=== PATIENT | female | born 1960 | race Caucasian/White ===

== ENCOUNTER 2023-02-27 15:56 | Inpatient (IN) | payer OTHER ==
[2023-02-27] MEDS ORDERED: DILTIAZEM DRIP BOLUS FROM BAG 1 MG SOLN IV ONE (16:34)
[2023-02-27] MEDS ORDERED: SODIUM CHLORIDE 0.9% 1,000 ML IV STA (16:34)
[2023-02-27] MEDS ORDERED: SODIUM CHLORIDE 0.9% 500 ML 500 ML IV STA (16:34)
[2023-02-27] MEDS ORDERED: DILTIAZEM 125 MG in SODIUM CHLORIDE 0.9% 100 ML IV SCH (16:45)
[2023-02-27 16:56] LABS: Basophils % (A) 0 %; Eosinophils # (A) 0.1 k/uL (0-0.7); Eosinophils % (A) 1 %; HCT 46.5 % (34.0-46.0); HGB 15.2 gm/dL (11.4-16.0); Lymphocytes # (A) 2.1 k/uL (1.0-4.8); Lymphocytes % (A) 24 %; MCH 31.9 pg (25.0-35.0); MCHC 32.7 g/dL (31.0-37.0); MCV 97.5 fL (80.0-100.0); Monocytes # (A) 0.5 k/uL (0-1.0); Monocytes % (A) 6 %; Neutrophils # (A) 5.7 k/uL (1.3-7.7); Neutrophils % (A) 67 %; Platelet Count 159 k/uL (150-450); RBC 4.77 m/uL (3.80-5.40); RDW 12.9 % (11.5-15.5); WBC 8.5 k/uL (3.8-10.6)
--- NOTE | 2023-02-27 17:02 | ED ---
SOB HPI - General Chief Complaint: Shortness of Breath Stated Complaint: SOB Time Seen by Provider: 02/27/23 16:34 Source: patient, RN notes reviewed, old records reviewed Mode of arrival: ambulatory Limitations: no limitations - History of Present Illness Initial Comments: This is a 62-year-old female Joan. She presents today for evaluation regar ds to elevated heart rate palpitations unable to catch her breath severely short of breath. Patient does admit that she feels like she may have pneumonia has history of pneumonia in the past and this feels similar. Patient is felt unwell for a few days now stemming from a long walk she took while at the fair. Patient is unable to catch her breath and is not currently better denies any fevers nausea vomiting or diarrhea. No other complaints no medical history the patient has not seen a doctor in years. Patient did quit smoking 20 years ago MD Complaint: shortness of breath, anxiety -: week(s) Severity: moderate Consistency: constant Improves With: nothing Worsens With: nothing Context: recent URI, anxiety, recent illness Associated Symptoms: denies other symptoms Treatments Prior to Arrival: none - Related Data Home Medications Medication Instructions Recorded Confirmed Esomeprazole Magnesium [NexIUM 20 mg PO DAILY 02/27/23 02/27/23 24Hr] L.acidoph,Paracasei, B.lactis 1 cap PO DAILY 02/27/23 02/27/23 [Probiotic] Magnesium Oxide [Magnesium] 1,000 mg PO DAILY 02/27/23 02/27/23 Previous Rx's Medication Instructions Recorded Apixaban [Eliquis] 5 mg PO BID #60 tab 03/02/23 Atorvastatin [Lipitor] 20 mg PO HS #30 tab 03/02/23 Furosemide [Lasix] 20 mg PO DAILY #30 tab 03/02/23 Metoprolol Tartrate [Lopressor] 50 mg PO BID #60 tab 03/02/23 lisinopriL [Zestril] 5 mg PO DAILY #30 tab 03/02/23 Allergies Allergy/AdvReac Type Severity Reaction Status Date / Time No Known Allergies Allergy Verified 02/27/23 17:31 Review of Systems ROS Statement: Those systems with pertinent positive or pertinent negative responses have been documented in the HPI. ROS Other: All systems not noted in ROS Statement are negative. Past Medical History Past Medical History: Pneumonia Additional Past Medical History / Comment(s): COVID History of Any Multi-Drug Resistant Organisms: None Reported Past Surgical History: Section Past Psychological History: No Psychological Hx Reported Smoking Status: Former smoker Past Alcohol Use History: Occasional Past Drug Use History: None Reported General Exam Limitations: no limitations General appearance: alert, anxious, in distress Head exam: Present: atraumatic, normocephalic, normal inspection Eye exam: Present: normal appearance, PERRL, EOMI. Absent: scleral icterus, conjunctival injection, periorbital swelling ENT exam: Present: normal exam, mucous membranes moist Neck exam: Present: normal inspection. Absent: tenderness, meningismus, lymphadenopathy Respiratory exam: Present: normal lung sounds bilaterally. Absent: respiratory distress, wheezes, rales, rhonchi, stridor Cardiovascular Exam: Present: tachycardia, irregular rhythm, normal heart sounds. Absent: systolic murmur, diastolic murmur, rubs, gallop, clicks GI/Abdominal exam: Present: soft, normal bowel sounds. Absent: distended, tenderness, guarding, rebound, rigid Extremities exam: Present: normal inspection, full ROM, normal capillary refill. Absent: tenderness, pedal edema, joint swelling, calf tenderness Back exam: Present: normal inspection Neurological exam: Present: alert, oriented X3, CN II-XII intact Psychiatric exam: Present: normal affect, normal mood Skin exam: Present: warm, dry, intact, normal color. Absent: rash Course Vital Signs 02/27/23 02/27/23 02/27/23 16:12 16:34 17:15 Temperature 98.2 F Pulse Rate 67 147 H 122 H Pulse Rate [ Pulse Oximetery ] Respiratory 24 20 20 Rate Blood Pressure 153/74 144/109 130/100 Blood Pressure [Right Arm] O2 Sat by Pulse 95 95 94 L Oximetry 02/27/23 02/27/23 02/27/23 17:45 18:46 19:46 Temperature Pulse Rate 112 H 113 H 114 H Pulse Rate [ Pulse Oximetery ] Respiratory 20 20 19 Rate Blood Pressure 134/99 134/100 136/90 Blood Pressure [Right Arm] O2 Sat by Pulse 96 96 95 Oximetry 02/27/23 02/27/23 02/28/23 21:30 23:14 01:20 Temperature Pulse Rate 109 H 97 92 Pulse Rate [ Pulse Oximetery ] Respiratory 19 17 17 Rate Blood Pressure 116/80 106/72 Blood Pressure [Right Arm] O2 Sat by Pulse 106 H 93 L Oximetry 02/28/23 02/28/23 02/28/23 02:44 05:21 06:59 Temperature Pulse Rate 97 99 101 H Pulse Rate [ Pulse Oximetery ] Respiratory 18 17 19 Rate Blood Pressure 114/76 125/78 125/76 Blood Pressure [Right Arm] O2 Sat by Pulse 90 L 92 L 92 L Oximetry 02/28/23 02/28/23 02/28/23 07:38 10:24 12:24 Temperature Pulse Rate 102 H 106 H Pulse Rate [ Pulse Oximetery ] Respiratory 18 18 Rate Blood Pressure 114/71 115/62 Blood Pressure [Right Arm] O2 Sat by Pulse 96 95 95 Oximetry 02/28/23 02/28/23 02/28/23 14:10 19:21 22:47 Temperature 97.4 F L 97.5 F L Pulse Rate 82 Pulse Rate [ 101 H 107 H Pulse Oximetery ] Respiratory 18 18 18 Rate Blood Pressure 137/82 Blood Pressure 133/97 137/82 [Right Arm] O2 Sat by Pulse 95 96 98 Oximetry - Reevaluation(s) Reevaluation #1: 02/27/23 18:30 Medical record is reviewed Reevaluation #2: 02/27/23 18:32 Patient symptoms are relatively unchanged heart rate still high, patient has no chest pain but is continued short of breath Reevaluation #3: 02/27/23 18:33 Patient informed results questions answered Reevaluation #4: 02/27/23 18:33 Was pt. sent in by a medical professional or institution (, PA, SOIL FIELD TECHNICIAN, urgent care, hospital, or usp...) When possible be specific @ -no Did you speak to anyone other than the patient for history (EMS, parent, family, police, friend...)? What history was obtained from this source @ -no Did you review nursing and triage notes (agree or disagree)? Why? @ -agree Are old charts reviewed (outside hosp., previous admission, EMS record, old EKG, old radiological studies, urgent care reports/EKG's, usp records)? Report findings @ -yes Differential Diagnosis (chest pain, altered mental status, abdominal pain women, abdominal pain men, vaginal bleeding, weakness, fever, dyspnea, syncope, headache, dizziness, GI bleed, back pain, seizure, CVA, palpatations, mental health, musculoskeletal)? @ -prior EKG interpreted by me (3pts min.). @ -yes X-rays interpreted by me (1pt min.). @ -yes CT interpreted by me (1pt min.). @ -no U/S interpreted by me (1pt. min.). @ -no What testing was considered but not performed or refused? (CT, X-rays, U/S, labs)? Why? @ -none What meds were considered but not given or refused? Why? @ -none Did you discuss the management of the patient with other professionals (professionals i.e. DrMelissa, PA, SOIL FIELD TECHNICIAN, lab, RT, psych nurse, social psychologist, statement clerks supervisor, teacher, technology officer, case supervisor)? Give summary @ -no Was smoking cessation discussed for >3mins.? @ -no Was critical care preformed (if so, how long)? @ -yes31 Were there social determinants of health that impacted care today? How? (Juanis elessness, low income, unemployed, alcoholism, drug addiction, transportation, low edu. Level, literacy, decrease access to med. care, skilled nursing, rehab)? @ -none Was there de-escalation of care discussed even if they declined (Discuss DNR or withdrawal of care, Hospice)? DNR status @ -no What co-morbidities impacted this encounter? (DM, HTN, Smoking, COPD, CAD, Cancer, CVA, ARF, Chemo, Hep., AIDS, mental health diagnosis, sleep apnea, morbid obesity)? @ -none Was patient admitted / discharged? Hospital course, mention meds given and route, prescriptions, significant lab abnormalities, going to OR and other pertinent info. @ - 62 female to the emergency department for evaluation. Elevated heart rate shortness of breath, patient is found to be and atrial fibrillation with RVR patient is anticoagulated with rate control and will be admitted for further evaluation management Admitted Undiagnosed new problem with uncertain prognosis? @ -no Drug Therapy requiring intensive monitoring for toxicity (Heparin, Nitro, Insulin, Cardizem)? @ -no Were any procedures done? @ -no Diagnosis/symptom? @ -Atrial fibrillation with RVR, weakness chest pain Acute, or Chronic, or Acute on Chronic? @ -Acute Uncomplicated (without systemic symptoms) or Complicated (systemic symptoms)? @ -Complicated Side effects of treatment? @ -no Exacerbation, Progression, or Severe Exacerbation? @ -exacerbation Poses a threat to life or bodily function? How? (Chest pain, [place], [place], pneumonia, PE, COPD, DKA, ARF, appy, cholecystitis, CVA, Diverticulitis, Homicidal, Suicidal, threat to staff... and all critical care pts) @ -yes with significant dysrhythmia Reevaluation #5: 02/27/23 18:33 Differential Chest Pain: Stable Angina, Unstable Angina, STEMI, NSTEMI Aortic Dissection, Pneumothorax, Musculoskeletal, Esophageal Spasm GERD, Cholecystitis, Pancreatitis, Zoster, this is not meant to be an all-inclusive list. Differential Dyspnea: Coronary syndrome, arrhythmia, tamponade, asthma, COPD, pulmonary embolism, pneumonia, pneumothorax, pulmonary effusion, anaphylaxis, diabetic ketoacidosis, flailed chest, pulmonary contusion, diaphragmatic rupture, anemia, neuromuscular, this is not meant to be an all-inclusive list. - Consultations Consultation #1: Spoke with sound physicians who agree to admit this patient Medical Decision Making - Medical Decision Making 62 female to the emergency department for evaluation. Elevated heart rate shortness of breath, patient is found to be and atrial fibrillation with RVR patient is anticoagulated with rate control and will be admitted for further evaluation management - Lab Data Result diagrams: 03/02/23 05:52 03/02/23 05:52 Lab Results 02/27/23 02/27/23 02/27/23 Range/Units 16:40 16:40 16:40 WBC 8.5 (3.8-10.6) k/uL RBC 4.77 (3.80-5.40) m/uL Hgb 15.2 (11.4-16.0) gm/dL Hct 46.5 H (34.0-46.0) % MCV 97.5 (80.0-100.0) fL MCH 31.9 (25.0-35.0) pg MCHC 32.7 (31.0-37.0) g/dL RDW 12.9 (11.5-15.5) % Plt Count 159 (150-450) k/uL MPV 10.0 Neutrophils % 67 % Lymphocytes % 24 % Monocytes % 6 % Eosinophils % 1 % Basophils % 0 % Neutrophils # 5.7 (1.3-7.7) k/uL Lymphocytes # 2.1 (1.0-4.8) k/uL Monocytes # 0.5 (0-1.0) k/uL Eosinophils # 0.1 (0-0.7) k/uL Basophils # 0.0 (0-0.2) k/uL PT 10.8 (9.0-12.0) sec INR 1.0 (<1.2) APTT 24.1 (22.0-30.0) sec Sodium 140 (137-145) mmol/L Potassium 4.5 (3.5-5.1) mmol/L Chloride 106 (98-107) mmol/L Carbon Dioxide 25 (22-30) mmol/L Anion Gap 9 mmol/L BUN 15 (7-17) mg/dL Creatinine 0.79 (0.52-1.04) mg/dL Est GFR (CKD-EPI)AfAm >90 (>60 ml/min/1.73 sqM) Est GFR (CKD-EPI)NonAf 81 (>60 ml/min/1.73 sqM) Glucose 96 (74-99) mg/dL Estimated Ave Glu mg/dL mg/dL Hemoglobin A1c (<=6.0) % Calcium 8.9 (8.4-10.2) mg/dL Phosphorus (2.5-4.5) mg/dL Magnesium 2.1 (1.6-2.3) mg/dL Total Bilirubin 0.9 (0.2-1.3) mg/dL AST 52 H (14-36) U/L ALT 92 H (4-34) U/L Alkaline Phosphatase 91 (38-126) U/L Troponin I (0.000-0.034) ng/mL Total Protein 6.1 L (6.3-8.2) g/dL Albumin 3.9 (3.5-5.0) g/dL Triglycerides (0.00-149.00) mg/dL Cholesterol (0.00-200.00) mg/dL LDL Cholesterol, Calc (0.0-131.0) mg/dL VLDL Cholesterol, Calc (5.00-40.00) mg/dL HDL Cholesterol (40.00-60.00) mg/dL Cholesterol/HDL Ratio Ratio TSH 3.850 (0.465-4.680) mIU/L 08/21/23 08/22/23 08/22/23 Range/Units 16:40 00:27 08:05 WBC 6.6 (3.8-10.6) k/uL RBC 4.57 (3.80-5.40) m/uL Hgb 14.5 (11.4-16.0) gm/dL Hct 45.5 (34.0-46.0) % MCV 99.6 (80.0-100.0) fL MCH 31.7 (25.0-35.0) pg MCHC 31.8 (31.0-37.0) g/dL RDW 13.0 (11.5-15.5) % Plt Count 158 (150-450) k/uL MPV 9.5 Neutrophils % 68 % Lymphocytes % 23 % Monocytes % 6 % Eosinophils % 1 % Basophils % 0 % Neutrophils # 4.5 (1.3-7.7) k/uL Lymphocytes # 1.5 (1.0-4.8) k/uL Monocytes # 0.4 (0-1.0) k/uL Eosinophils # 0.1 (0-0.7) k/uL Basophils # 0.0 (0-0.2) k/uL PT (9.0-12.0) sec INR (<1.2) APTT 38.2 H (22.0-30.0) sec Sodium (137-145) mmol/L Potassium (3.5-5.1) mmol/L Chloride (98-107) mmol/L Carbon Dioxide (22-30) mmol/L Anion Gap mmol/L BUN (7-17) mg/dL Creatinine (0.52-1.04) mg/dL Est GFR (CKD-EPI)AfAm (>60 ml/min/1.73 sqM) Est GFR (CKD-EPI)NonAf (>60 ml/min/1.73 sqM) Glucose (74-99) mg/dL Estimated Ave Glu mg/dL mg/dL Hemoglobin A1c (<=6.0) % Calcium (8.4-10.2) mg/dL Phosphorus (2.5-4.5) mg/dL Magnesium (1.6-2.3) mg/dL Total Bilirubin (0.2-1.3) mg/dL AST (14-36) U/L ALT (4-34) U/L Alkaline Phosphatase (38-126) U/L Troponin I 0.229 H* (0.000-0.034) ng/mL Total Protein (6.3-8.2) g/dL Albumin (3.5-5.0) g/dL Triglycerides (0.00-149.00) mg/dL Cholesterol (0.00-200.00) mg/dL LDL Cholesterol, Calc (0.0-131.0) mg/dL VLDL Cholesterol, Calc (5.00-40.00) mg/dL HDL Cholesterol (40.00-60.00) mg/dL Cholesterol/HDL Ratio Ratio TSH (0.465-4.680) mIU/L 02/28/23 02/28/23 02/28/23 Range/Units 08:05 08:05 08:05 WBC (3.8-10.6) k/uL RBC (3.80-5.40) m/uL Hgb (11.4-16.0) gm/dL Hct (34.0-46.0) % MCV (80.0-100.0) fL MCH (25.0-35.0) pg MCHC (31.0-37.0) g/dL RDW (11.5-15.5) % Plt Count (150-450) k/uL MPV Neutrophils % % Lymphocytes % % Monocytes % % Eosinophils % % Basophils % % Neutrophils # (1.3-7.7) k/uL Lymphocytes # (1.0-4.8) k/uL Monocytes # (0-1.0) k/uL Eosinophils # (0-0.7) k/uL Basophils # (0-0.2) k/uL PT (9.0-12.0) sec INR (<1.2) APTT 49.4 H (22.0-30.0) sec Sodium 143 (137-145) mmol/L Potassium 4.3 (3.5-5.1) mmol/L Chloride 109 H (98-107) mmol/L Carbon Dioxide 27 (22-30) mmol/L Anion Gap 7 mmol/L BUN 15 (7-17) mg/dL Creatinine 0.69 (0.52-1.04) mg/dL Est GFR (CKD-EPI)AfAm >90 (>60 ml/min/1.73 sqM) Est GFR (CKD-EPI)NonAf >90 (>60 ml/min/1.73 sqM) Glucose 95 (74-99) mg/dL Estimated Ave Glu mg/dL 117 mg/dL Hemoglobin A1c 5.7 (<=6.0) % Calcium 8.4 (8.4-10.2) mg/dL Phosphorus 3.8 (2.5-4.5) mg/dL Magnesium 2.0 (1.6-2.3) mg/dL Total Bilirubin 1.2 (0.2-1.3) mg/dL AST 46 H (14-36) U/L ALT 81 H (4-34) U/L Alkaline Phosphatase 89 (38-126) U/L Troponin I (0.000-0.034) ng/mL Total Protein 5.6 L (6.3-8.2) g/dL Albumin 3.4 L (3.5-5.0) g/dL Triglycerides (0.00-149.00) mg/dL Cholesterol (0.00-200.00) mg/dL LDL Cholesterol, Calc (0.0-131.0) mg/dL VLDL Cholesterol, Calc (5.00-40.00) mg/dL HDL Cholesterol (40.00-60.00) mg/dL Cholesterol/HDL Ratio Ratio TSH (0.465-4.680) mIU/L 02/28/23 02/28/23 02/28/23 Range/Units 08:05 10:17 12:12 WBC 8.3 (3.8-10.6) k/uL RBC 4.45 (3.80-5.40) m/uL Hgb 14.4 (11.4-16.0) gm/dL Hct 43.7 (34.0-46.0) % MCV 98.4 (80.0-100.0) fL MCH 32.4 (25.0-35.0) pg MCHC 32.9 (31.0-37.0) g/dL RDW 13.0 (11.5-15.5) % Plt Count 158 (150-450) k/uL MPV 9.5 Neutrophils % 71 % Lymphocytes % 20 % Monocytes % 6 % Eosinophils % 1 % Basophils % 1 % Neutrophils # 5.9 (1.3-7.7) k/uL Lymphocytes # 1.6 (1.0-4.8) k/uL Monocytes # 0.5 (0-1.0) k/uL Eosinophils # 0.1 (0-0.7) k/uL Basophils # 0.1 (0-0.2) k/uL PT (9.0-12.0) sec INR (<1.2) APTT (22.0-30.0) sec Sodium (137-145) mmol/L Potassium (3.5-5.1) mmol/L Chloride (98-107) mmol/L Carbon Dioxide (22-30) mmol/L Anion Gap mmol/L BUN (7-17) mg/dL Creatinine (0.52-1.04) mg/dL Est GFR (CKD-EPI)AfAm (>60 ml/min/1.73 sqM) Est GFR (CKD-EPI)NonAf (>60 ml/min/1.73 sqM) Glucose (74-99) mg/dL Estimated Ave Glu mg/dL mg/dL Hemoglobin A1c (<=6.0) % Calcium (8.4-10.2) mg/dL Phosphorus (2.5-4.5) mg/dL Magnesium (1.6-2.3) mg/dL Total Bilirubin (0.2-1.3) mg/dL AST (14-36) U/L ALT (4-34) U/L Alkaline Phosphatase (38-126) U/L Troponin I 0.104 H* (0.000-0.034) ng/mL Total Protein (6.3-8.2) g/dL Albumin (3.5-5.0) g/dL Triglycerides 59.50 (0.00-149.00) mg/dL Cholesterol 153.00 (0.00-200.00) mg/dL LDL Cholesterol, Calc 93.3 (0.0-131.0) mg/dL VLDL Cholesterol, Calc 11.90 (5.00-40.00) mg/dL HDL Cholesterol 47.80 (40.00-60.00) mg/dL Cholesterol/HDL Ratio 3.20 Ratio TSH (0.465-4.680) mIU/L 02/28/23 Range/Units 12:12 WBC (3.8-10.6) k/uL RBC (3.80-5.40) m/uL Hgb (11.4-16.0) gm/dL Hct (34.0-46.0) % MCV (80.0-100.0) fL MCH (25.0-35.0) pg MCHC (31.0-37.0) g/dL RDW (11.5-15.5) % Plt Count (150-450) k/uL MPV Neutrophils % % Lymphocytes % % Monocytes % % Eosinophils % % Basophils % % Neutrophils # (1.3-7.7) k/uL Lymphocytes # (1.0-4.8) k/uL Monocytes # (0-1.0) k/uL Eosinophils # (0-0.7) k/uL Basophils # (0-0.2) k/uL PT (9.0-12.0) sec INR (<1.2) APTT (22.0-30.0) sec Sodium 142 (137-145) mmol/L Potassium 4.4 (3.5-5.1) mmol/L Chloride 109 H (98-107) mmol/L Carbon Dioxide 27 (22-30) mmol/L Anion Gap 6 mmol/L BUN 15 (7-17) mg/dL Creatinine 0.82 (0.52-1.04) mg/dL Est GFR (CKD-EPI)AfAm 88 (>60 ml/min/1.73 sqM) Est GFR (CKD-EPI)NonAf 77 (>60 ml/min/1.73 sqM) Glucose 124 H (74-99) mg/dL Estimated Ave Glu mg/dL mg/dL Hemoglobin A1c (<=6.0) % Calcium 8.5 (8.4-10.2) mg/dL Phosphorus (2.5-4.5) mg/dL Magnesium (1.6-2.3) mg/dL Total Bilirubin (0.2-1.3) mg/dL AST (14-36) U/L ALT (4-34) U/L Alkaline Phosphatase (38-126) U/L Troponin I (0.000-0.034) ng/mL Total Protein (6.3-8.2) g/dL Albumin (3.5-5.0) g/dL Triglycerides (0.00-149.00) mg/dL Cholesterol (0.00-200.00) mg/dL LDL Cholesterol, Calc (0.0-131.0) mg/dL VLDL Cholesterol, Calc (5.00-40.00) mg/dL HDL Cholesterol (40.00-60.00) mg/dL Cholesterol/HDL Ratio Ratio TSH (0.465-4.680) mIU/L - EKG Data -: EKG Interpreted by Me (EKG is A. fib with RVR 144 QRS 76 QTC 377) - Radiology Data Radiology results: report reviewed (Chest x-rays positive for CHF), image reviewed Critical Care Time Critical Care Time: Yes Total Critical Care Time: 31 Disposition Clinical Impression: NSTEMI (non-ST elevated myocardial infarction), Atrial fibrillation with rapid ventricular response, Acute pulmonary edema, Congestive heart failure, New onset atrial fibrillation Disposition: ADMITTED IP TO THIS HOSP Condition: Good Is patient prescribed a controlled substance at d/c from ED?: No Time of Disposition: 18:35
[2023-02-27 17:05] LABS: Partial Thromboplastin Time 24.1 sec (22.0-30.0); Prothrombin Time 10.8 sec (9.0-12.0)
[2023-02-27 17:19] LABS: ALT 92 U/L (4-34); AST 52 U/L (14-36); African American GFR (CKD) >90 (>60 ml/min/1.73 sqM); Albumin 3.9 g/dL (3.5-5.0); Alkaline Phosphatase 91 U/L (38-126); Anion Gap 9 mmol/L; Blood Urea Nitrogen 15 mg/dL (7-17); Calcium 8.9 mg/dL (8.4-10.2); Carbon Dioxide 25 mmol/L (22-30); Chloride 106 mmol/L (98-107); Glucose 96 mg/dL (74-99); Magnesium 2.1 mg/dL (1.6-2.3); Non-African American GFR(CKD) 81 (>60 ml/min/1.73 sqM); Potassium 4.5 mmol/L (3.5-5.1); Sodium 140 mmol/L (137-145); Total Bilirubin 0.9 mg/dL (0.2-1.3); Total Protein 6.1 g/dL (6.3-8.2)
--- NOTE | 2023-02-27 17:49 | XR ---
EXAMINATION TYPE: XR chest 1V portable DATE OF EXAM: 02/27/2023 5:13 PM COMPARISON: None TECHNIQUE: XR chest 1V portable Frontal view of the chest. CLINICAL INDICATION:Female, 62 years old with history of dysrhythmia; FINDINGS: Lungs/Pleura: No evidence of focal consolidation or pneumothorax. Blunting of the costophrenic angles is present. Pulmonary vascularity: Pulmonary vascular congestion. Heart/mediastinum: Cardiomediastinal silhouette is enlarged and stable. Musculoskeletal: No acute osseous pathology. IMPRESSION: Cardiomegaly, pulmonary vascular congestion and bilateral pleural effusions. Correlate with BNP for c ongestive heart failure.
[2023-02-27] MEDS ORDERED: HEPARIN SODIUM 1,000 UN/ML (10ML VL) IV PRN (18:28)
[2023-02-27] MEDS ORDERED: NALOXONE 0.4 MG/ML 1 ML VIAL IV PRN (18:28)
[2023-02-27] MEDS ORDERED: HEPARIN SODIUM 1,000 UN/ML (10ML VL) IV ONE (18:28)
[2023-02-27] MEDS ORDERED: ONDANSETRON 4 MG/2 ML VIAL IVP PRN (18:28)
[2023-02-27] MEDS ORDERED: MORPHINE SULFATE 4 MG/ML SYRINGE IV PRN (18:28)
[2023-02-27] MEDS: HEPARIN SOD,PORK IN 0.45% NACL 25,000 UNIT in 0.45% NACL 1 250ML.BAG IV SCH (18:42)
[2023-02-27] MEDS: SODIUM CHLORIDE 0.9% 1,000 ML IV SCH (18:46)
--- NOTE | 2023-02-28 00:51 | P.HPIM ---
History of Present Illness H&P Date: 02/27/23 Chief Complaint: palpitations, SOB 62 year old female no significant past medical history coming in with worsening palpitations, and exertional dyspnea for the past 1 week. it all started after she exerted herself at a fair, and did a lot of walking. since then she noticed exercise intolerance when she tries to do any activity. she feels fine otherwise if she is resting doing nothing she denies any cardiac history , denies any recent travel, history of cancer, or recent hospital stay , denies any history of blood clots. denies any fever, chills, URI symptoms, nausea vomting, abd pain , changes in bowel or urinary habits. denies tobacco smoking, illicit drugs or alcohol review of systems Pertinent positives as noted in HPI. All other systems were reviewed and are negative on exam Constitutional: No acute distress, conversant, pleasant Eyes: Anicteric sclerae, moist conjunctiva, Pupils equal round reactive to light ENMT: NC/AT Oropharynx clear, no erythema, or exudates Neck: Supple, no masses, or JVD No carotid bruits No thyromegaly Lungs: Clear to auscultation Clear to percussion Normal respiratory effort, no accessory muscle use Cardiovascular: Heart irregular in rate and rhythm, No murmurs, gallops, or rubs No peripheral edema Abdominal: Soft Nontender, no guarding, rebound or rigidity Abdomen moving with respiration Normoactive bowel sounds No hepatomegaly, No splenomegaly No palpable mass No abdominal wall hernia noted Skin: Normal temperature, tone, texture, turgor No induration No subcutaneous nodules No rash, lesions No ulcers Extremities: No digital cyanosis No clubbing Pedal pulses intact and symmetrical Radial pulses intact and symmetrical No calf tenderness Psychiatric: Alert and oriented to person, place and time Appropriate affect fair judgement Neuro Muscles Strength 5/5 in all 4 extremities Sensation to light touch grossly present throughout Cranial nerves II-XII grossly intact Lymphatics: no palpable cervical or supraclavicular lymph nodes Past Medical History Past Medical History: Pneumonia Additional Past Medical History / Comment(s): COVID History of Any Multi-Drug Resistant Organisms: None Reported Past Surgical History: Section Past Psychological History: No Psychological Hx Reported Smoking Status: Former smoker Past Alcohol Use History: Occasional Past Drug Use History: None Reported Medications and Allergies Home Medications Medication Instructions Recorded Confirmed Type Esomeprazole Magnesium [NexIUM 20 mg PO DAILY 02/27/23 02/27/23 History 24Hr] L.acidoph,Paracasei, B.lactis 1 cap PO DAILY 02/27/23 02/27/23 History [Probiotic] Magnesium Oxide [Magnesium] 1,000 mg PO DAILY 02/27/23 02/27/23 History Allergies Allergy/AdvReac Type Severity Reaction Status Date / Time No Known Allergies Allergy Verified 02/27/23 17:31 Physical Exam Vitals: Vital Signs Temp Pulse Resp BP Pulse Ox 02/27/23 23:14 97 17 116/80 106 H 02/27/23 21:30 109 H 19 02/27/23 19:46 114 H 19 136/90 95 02/27/23 18:46 113 H 20 134/100 96 02/27/23 17:45 112 H 20 134/99 96 02/27/23 17:15 122 H 20 130/100 94 L 02/27/23 16:34 147 H 20 144/109 95 02/27/23 16:12 98.2 F 67 24 153/74 95 Intake and Output 02/27/23 02/27/23 02/28/23 14:59 22:59 06:59 Other: Weight 99.79 kg Results CBC & Chem 7: 02/27/23 16:40 02/27/23 16:40 Labs: Abnormal Lab Results - Last 24 Hours (Table) 02/27/23 02/27/23 02/27/23 Range/Units 16:40 16:40 16:40 Hct 46.5 H (34.0-46.0) % AST 52 H (14-36) U/L ALT 92 H (4-34) U/L Troponin I 0.229 H* (0.000-0.034) ng/mL Total Protein 6.1 L (6.3-8.2) g/dL Assessment and Plan Assessment: 62 year old female with no significant past medical history , coming in for palpitations and exertional dyspnea, I discussed the case with ED doc and I accepted the admission for new onset afib with RVR with anticipated length of stay > 2 midnights new onset afib with RVR heparin gtt cardizem gtt 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
[2023-02-28] MEDS: PANTOPRAZOLE 40 MG TABLET PO SCH (06:45)
[2023-02-28] MEDS: SODIUM CHLORIDE 0.9% 1,000 ML IV SCH (06:57)
[2023-02-28] MEDS ORDERED: FUROSEMIDE 10 MG/ML 2 ML VIAL IV SCH (09:00)
[2023-02-28 09:01] LABS: Basophils % (A) 0 %; Eosinophils # (A) 0.1 k/uL (0-0.7); Eosinophils % (A) 1 %; HCT 45.5 % (34.0-46.0); HGB 14.5 gm/dL (11.4-16.0); Lymphocytes # (A) 1.5 k/uL (1.0-4.8); Lymphocytes % (A) 23 %; MCH 31.7 pg (25.0-35.0); MCHC 31.8 g/dL (31.0-37.0); MCV 99.6 fL (80.0-100.0); Mean Platelet Volume 9.5; Monocytes # (A) 0.4 k/uL (0-1.0); Monocytes % (A) 6 %; Neutrophils # (A) 4.5 k/uL (1.3-7.7); Neutrophils % (A) 68 %; Platelet Count 158 k/uL (150-450); RBC 4.57 m/uL (3.80-5.40); WBC 6.6 k/uL (3.8-10.6)
[2023-02-28 09:18] LABS: ALT 81 U/L (4-34); AST 46 U/L (14-36); African American GFR (CKD) >90 (>60 ml/min/1.73 sqM); Albumin 3.4 g/dL (3.5-5.0); Alkaline Phosphatase 89 U/L (38-126); Anion Gap 7 mmol/L; Blood Urea Nitrogen 15 mg/dL (7-17); Calcium 8.4 mg/dL (8.4-10.2); Carbon Dioxide 27 mmol/L (22-30); Chloride 109 mmol/L (98-107); Glucose 95 mg/dL (74-99); Non-African American GFR(CKD) >90 (>60 ml/min/1.73 sqM); Phosphorus 3.8 mg/dL (2.5-4.5); Potassium 4.3 mmol/L (3.5-5.1); Sodium 143 mmol/L (137-145); Total Bilirubin 1.2 mg/dL (0.2-1.3); Total Protein 5.6 g/dL (6.3-8.2)
--- NOTE | 2023-02-28 11:03 | P.CRDCN ---
History of Present Illness Consult date: 02/28/23 History of present illness: HISTORY OF PRESENTING ILLNESS This is a pleasant 62-year-old with no significant past medical history. She has not seen any physician recent past. Patient presented to the ER with the chief complaint of shortness of breath that started 1-2 weeks ago has been progressively getting worse. She is also noticed mild lower extremity swelling with this. She denies having any substernal chest pressure or pain symptoms. She has noticed on and off palpitations but not persistent. She denies any lightheadedness dizziness or syncopal episodes. Admission she is noticed to be in atrial fibrillation with RVR. This is a new diagnosis for her. She denies any active smoking, the patient is a cardiac or use. She denies any family history of premature coronary artery disease. DIAGNOSTICS EKG reveals atrial fibrillation with RVR. No significant ST changes. Telemetry shows atrial fibrillation at the time of evaluation Chest xray bilateral pulmonary congestion mild. Laboratory reviewed, hemoglobin 14.0, troponin 0.9, creatinine 0.69. TSH 3.8 REVIEW OF SYSTEMS 14 point review of system is negative except what is mentioned above in HPI. PHYSICAL EXAMINATION Vital signs reviewed. Head: Normocephalic. Eyes: Sclerae nonicteric. Neck: Brisk carotid upstroke, mild JVP elevation. Lungs: Mild crackles audible in bilateral lung tristan Heart: Irregularly irregular, S1-S2, no S3, no murmur or rub. Abdomen: Soft nontender, positive bowel sounds no organomegaly. Extremities: Pitting edema 1+ in b/l LE ASSESSMENT New-onset atrial fibrillation with RVR. Currently rate controlled elevated [id number] score score of 3 (age, gender, likely CAD) NSTEMI type I Mild congestive heart failure exacerbation PLAN Start Lasix 40 minutes IV twice a day Start aspirin 81 mg Start IV heparin drip Discontinue Cardizem drip. Start metoprolol 50 mg twice a day Obtain an echocardiogram Keep patient nothing by mouth after midnight, possible cardiac catheter tomorrow Past Medical History Past Medical History: Pneumonia Additional Past Medical History / Comment(s): COVID History of Any Multi-Drug Resistant Organisms: None Reported Past Surgical History: Section Past Psychological History: No Psychological Hx Reported Smoking Status: Former smoker Past Alcohol Use History: Occasional Past Drug Use History: None Reported Medications and Allergies Home Medications Medication Instructions Recorded Confirmed Type Esomeprazole Magnesium [NexIUM 20 mg PO DAILY 02/27/23 02/27/23 History 24Hr] L.acidoph,Paracasei, B.lactis 1 cap PO DAILY 02/27/23 02/27/23 History [Probiotic] Magnesium Oxide [Magnesium] 1,000 mg PO DAILY 02/27/23 02/27/23 History Allergies Allergy/AdvReac Type Severity Reaction Status Date / Time No Known Allergies Allergy Verified 02/27/23 17:31 Physical Exam Vitals: Vital Signs Temp Pulse Resp BP Pulse Ox 02/28/23 10:24 102 H 18 114/71 95 02/28/23 07:38 96 02/28/23 06:59 101 H 19 125/76 92 L 02/28/23 05:21 99 17 125/78 92 L 02/28/23 02:44 97 18 114/76 90 L 02/28/23 01:20 92 17 106/72 93 L 02/27/23 23:14 97 17 116/80 106 H 02/27/23 21:30 109 H 19 02/27/23 19:46 114 H 19 136/90 95 02/27/23 18:46 113 H 20 134/100 96 02/27/23 17:45 112 H 20 134/99 96 02/27/23 17:15 122 H 20 130/100 94 L 02/27/23 16:34 147 H 20 144/109 95 02/27/23 16:12 98.2 F 67 24 153/74 95 Intake and Output 02/27/23 02/28/23 02/28/23 22:59 06:59 14:59 Intake Total 135.243 96.16 Balance 135.243 96.16 Intake: Intake, IV Titration 135.243 96.16 Amount Diltiazem 125 mg In 69.25 Sodium Chloride 0.9% 100 ml @ 5 MG/HR 5 mls/hr IV .Q24H [facility] Rx#:[id number] Heparin Sod,Pork in 0.45% 65.993 96.16 NaCl 25,000 unit In 0.45 % NaCl 1 250ml.bag @ 10. 02 UNITS/KG/HR 9.999 mls/ hr IV .Q24H [facility] Rx#: [id number] Other: Weight 99.79 kg Results 02/28/23 08:05 02/28/23 08:05 Cardiac Enzymes 02/27/23 02/27/23 02/28/23 Range/Units 16:40 16:40 08:05 AST 52 H 46 H (14-36) U/L Troponin I 0.229 H* (0.000-0.034) ng/mL Coagulation 02/27/23 02/28/23 02/28/23 Range/Units 16:40 00:27 08:05 PT 10.8 (9.0-12.0) sec APTT 24.1 38.2 H 49.4 H (22.0-30.0) sec CBC 02/27/23 02/28/23 Range/Units 16:40 08:05 WBC 8.5 6.6 (3.8-10.6) k/uL RBC 4.77 4.57 (3.80-5.40) m/uL Hgb 15.2 14.5 (11.4-16.0) gm/dL Hct 46.5 H 45.5 (34.0-46.0) % Plt Count 159 158 (150-450) k/uL Comprehensive Metabolic Panel 02/27/23 02/28/23 Range/Units 16:40 08:05 Sodium 140 143 (137-145) mmol/L Potassium 4.5 4.3 (3.5-5.1) mmol/L Chloride 106 109 H (98-107) mmol/L Carbon Dioxide 25 27 (22-30) mmol/L BUN 15 15 (7-17) mg/dL Creatinine 0.79 0.69 (0.52-1.04) mg/dL Glucose 96 95 (74-99) mg/dL Calcium 8.9 8.4 (8.4-10.2) mg/dL AST 52 H 46 H (14-36) U/L ALT 92 H 81 H (4-34) U/L Alkaline Phosphatase 91 89 (38-126) U/L Total Protein 6.1 L 5.6 L (6.3-8.2) g/dL Albumin 3.9 3.4 L (3.5-5.0) g/dL Current Medications Generic Name Dose Route Start Last Admin Trade Name Freq PRN Reason Stop Dose Admin Aspirin 81 mg 03/01/23 09:00 Aspirin 81 Mg PO DAILY MARY Furosemide 20 mg 02/28/23 09:00 08/22/23 08:41 Furosemide 10 Mg/Ml 2 Ml Vial IV 20 mg DAILY MARY Administration Heparin Sodium (Porcine) 0 unit 02/27/23 18:28 02/28/23 01:17 Heparin Sodium 1,000 Un/Ml (10ml Vl) IV 2,494 unit PER PROTOCOL PRN Administration Low PTT Protocol Diltiazem HCl 125 mg/ Sodium 125 mls @ 5 mls/hr 02/27/23 16:45 02/28/23 06:58 Chloride IV 10 mg/hr .Q24H MARY 10 mls/hr Infusion 5 MG/HR Heparin Sodium/Sodium Chloride 250 mls @ 9.999 mls/hr 02/27/23 18:30 02/28/23 09:19 25,000 unit/ Sodium Chloride IV 12.02 units/kg/hr .Q24H MARY 11.995 mls/hr Titration Protocol 10.02 UNITS/KG/HR Morphine Sulfate 4 mg 02/27/23 18:28 Morphine Sulfate 4 Mg/Ml Syringe IV Q4HR PRN Severe Pain (Scale 7 to 10) Naloxone HCl 0.2 mg 02/27/23 18:28 Naloxone 0.4 Mg/Ml 1 Ml Vial IV Q2M PRN Opioid Reversal Ondansetron HCl 4 mg 02/27/23 18:28 Ondansetron 4 Mg/2 Ml Vial IVP Q8HR PRN Nausea And Vomiting Pantoprazole Sodium 40 mg 02/28/23 07:30 02/28/23 06:45 Pantoprazole 40 Mg Tablet PO 40 mg [id number] [facility] Administration Intake and Output 02/27/23 02/28/23 02/28/23 22:59 06:59 14:59 Intake Total 135.243 96.16 Balance 135.243 96.16 Intake: Intake, IV Titration 135.243 96.16 Amount Diltiazem 125 mg In 69.25 Sodium Chloride 0.9% 100 ml @ 5 MG/HR 5 mls/hr IV .Q24H [facility] Rx#:[id number] Heparin Sod,Pork in 0.45% 65.993 96.16 NaCl 25,000 unit In 0.45 % NaCl 1 250ml.bag @ 10. 02 UNITS/KG/HR 9.999 mls/ hr IV .Q24H [facility] Rx#: [id number] Other: Weight 99.79 kg 02/28/23 08:05 02/28/23 08:05
--- NOTE | 2023-02-28 11:04 | P.PN ---
Subjective Progress Note Date: 02/28/23 Patient reports improvement palpitations, but has some trouble breathing especially with laying flat. Gen: awake, alert HEENT: normocephalic, atraumatic, good hearing acuity, moist mucous membranes Resp: good air exchange, breathing comfortably with no accessory muscle use, bilateral crackles in the bases CVS: good distal perfusion x 4, irregular rhythm and rate, no appreciable murmurs GI: soft, NTTP, ND : no SPT, no CVAT, tripathi catheter not present MSK: 1+ bilateral pitting edema, no clubbing Neuro: non-focal, moving all extremities Psych: cooperative, euthymic mood Hospital course: 62 year old female no significant past medical history presented for palpitations and exertional dyspnea. In the emergency room, patient was afebrile, 114/71, heart rate 102, 95% on 2 L nasal cannula. CBC is unremarkable. Basic metabolic panel is unremarkable. Liver function test show elevation of AST to 52, ALT to 92. TSH was 2.5. Troponin was 0.2-9. Coags are unremarkable. EKG demonstrates atrial fibrillation with rapid ventricular response. Chest x-ray shows mild cardiomegaly and vascular congestion. Case is discussed with emergency room N decision was made to admit the patient for new onset atrial fibrillation as well as suspected heart failure exacerbation. Assessment: Paroxysmal atrial fibrillation with RVR Acute Congestive heart failure exacerbation, echocardiogram pending Elevated troponin, representing type II NSTEMI from the above Elevated liver enzymes consistent with congestive hepatopathy Plan: Vital signs, lab work reviewed and discussed in the hospital course above Chest x-ray was personally interpreted and discussed in the hospital course above CBC, basic parabolic panel, magnesium ordered for tomorrow Continue heparin drip, follow PTT for toxicity Continue Cardizem drip, monitor on telemetry for toxicity Start Lasix 20 mg IV daily, stop IV fluids Cardiology consult is pending Echocardiogram is pending Patient is full code Objective - Vital Signs Vital signs: Vital Signs Temp 98.2 F 02/27/23 16:12 Pulse 102 H 02/28/23 10:24 Resp 18 02/28/23 10:24 BP 114/71 02/28/23 10:24 Pulse Ox 95 02/28/23 10:24 FiO2 Intake & Output 02/27/23 02/28/23 02/28/23 18:59 06:59 18:59 Intake Total 135.243 96.16 Balance 135.243 96.16 Weight 99.79 kg Intake: Intake, IV Titration 135.243 96.16 Amount Diltiazem 125 mg In 69.25 Sodium Chloride 0.9% 100 ml @ 5 MG/HR 5 mls/hr IV .Q24H ON LICENSE OF [facility] Rx#:[id number] Heparin Sod,Pork in 0.45% 65.993 96.16 NaCl 25,000 unit In 0.45 % NaCl 1 250ml.bag @ 10. 02 UNITS/KG/HR 9.999 mls/ hr IV .Q24H ON LICENSE OF [facility] Rx#: [id number] - Labs CBC & Chem 7: 02/28/23 08:05 02/28/23 08:05 Labs: Abnormal Lab Results - Last 24 Hours (Table) 02/27/23 02/27/23 02/27/23 Range/Units 16:40 16:40 16:40 Hct 46.5 H (34.0-46.0) % APTT (22.0-30.0) sec Chloride (98-107) mmol/L AST 52 H (14-36) U/L ALT 92 H (4-34) U/L Troponin I 0.229 H* (0.000-0.034) ng/mL Total Protein 6.1 L (6.3-8.2) g/dL Albumin (3.5-5.0) g/dL 02/28/23 02/28/23 02/28/23 Range/Units 00:27 08:05 08:05 Hct (34.0-46.0) % APTT 38.2 H 49.4 H (22.0-30.0) sec Chloride 109 H (98-107) mmol/L AST 46 H (14-36) U/L ALT 81 H (4-34) U/L Troponin I (0.000-0.034) ng/mL Total Protein 5.6 L (6.3-8.2) g/dL Albumin 3.4 L (3.5-5.0) g/dL
[2023-02-28] MEDS: METOPROLOL TARTRATE 25 MG TAB PO SCH ×2 (11:37→20:04)
[2023-02-28] MEDS: HEPARIN SOD,PORK IN 0.45% NACL 25,000 UNIT in 0.45% NACL 1 250ML.BAG IV SCH (11:38)
[2023-02-28] MEDS ORDERED: NITROGLYCERIN SL TABS 0.4 MG TAB SUBLINGUAL PRN (11:43)
[2023-02-28] MEDS ORDERED: ALPRAZolam 0.5 MG TAB PO PRN (11:43)
[2023-02-28] MEDS ORDERED: ALPRAZolam 0.25 MG TAB PO PRN (11:43)
[2023-02-28 12:40] LABS: Basophils # (A) 0.1 k/uL (0-0.2); Basophils % (A) 1 %; Eosinophils # (A) 0.1 k/uL (0-0.7); Eosinophils % (A) 1 %; HCT 43.7 % (34.0-46.0); HGB 14.4 gm/dL (11.4-16.0); Lymphocytes # (A) 1.6 k/uL (1.0-4.8); Lymphocytes % (A) 20 %; MCH 32.4 pg (25.0-35.0); MCHC 32.9 g/dL (31.0-37.0); MCV 98.4 fL (80.0-100.0); Mean Platelet Volume 9.5; Monocytes # (A) 0.5 k/uL (0-1.0); Monocytes % (A) 6 %; Neutrophils # (A) 5.9 k/uL (1.3-7.7); Neutrophils % (A) 71 %; Platelet Count 158 k/uL (150-450); RBC 4.45 m/uL (3.80-5.40); WBC 8.3 k/uL (3.8-10.6)
[2023-02-28 12:57] LABS: African American GFR (CKD) 88 (>60 ml/min/1.73 sqM); Anion Gap 6 mmol/L; Blood Urea Nitrogen 15 mg/dL (7-17); Calcium 8.5 mg/dL (8.4-10.2); Carbon Dioxide 27 mmol/L (22-30); Chloride 109 mmol/L (98-107); Glucose 124 mg/dL (74-99); Non-African American GFR(CKD) 77 (>60 ml/min/1.73 sqM); Potassium 4.4 mmol/L (3.5-5.1); Sodium 142 mmol/L (137-145)
[2023-02-28 16:12] LABS: LDL Cholesterol,Calculated 93.3 mg/dL (0.0-131.0)
[2023-02-28] MEDS: FUROSEMIDE 10 MG/ML 4 ML VIAL IV SCH (20:04)
[2023-03-01] MEDS: METOPROLOL TARTRATE 25 MG TAB PO SCH (05:06)
[2023-03-01] MEDS: PANTOPRAZOLE 40 MG TABLET PO SCH (05:06)
[2023-03-01 05:55] LABS: Glucose,Whole Blood 99 mg/dL (70-110)
[2023-03-01] MEDS ORDERED: HEPARIN SODIUM,PORCINE 10,000 UNIT in SODIUM CHLORIDE 0.9% 1,000 ML IRRIGATION PRN (07:00)
[2023-03-01] MEDS ORDERED: HEPARIN SODIUM,PORCINE (1 ML) 2,500 UNIT in SODIUM CHLORIDE 0.9% 250 ML IRRIGATION PRN (07:00)
[2023-03-01] MEDS ORDERED: ASPIRIN 325 MG TAB PO STA (07:42)
[2023-03-01] MEDS ORDERED: ATORVASTATIN 80 MG TAB PO STA (07:43)
--- NOTE | 2023-03-01 10:15 | CA ---
Transthoracic Echo Report Name: Marcelle Emery Age: 62 Gender: F : 1960 Exam Date: 02/28/2023 10:51 Exam Location: [facility] Ht (in): 63 Wt (lb): 220 Ordering Physician: Stanford Green MD ([id number]) Attending/Referring Phys: Transport Medic Ming Pham Procedure CPT: Indications: New afib and nstemi Cardiac Hx: Technical Quality: Fair Contrast 1: Total Dose (mL): Contrast 2: Total Dose (mL): MEASUREMENTS (Male / Female) Normal Values 2D ECHO LV Diastolic Diameter PLAX 4.8 cm 4.2 - 5.9 / 3.9 - 5.3 cm LV Systolic Diameter PLAX 3.9 cm IVS Diastolic Thickness 1.1 cm 0.6 - 1.0 / 0.6 - 0.9 cm LVPW Diastolic Thickness 1.1 cm 0.6 - 1.0 / 0.6 - 0.9 cm LV Relative Wall Thickness 0.5 RV Internal Dim ED PLAX 3.0 cm LVOT Diameter 2.0 cm Aortic Root Diameter 2.9 cm LA Systolic Diameter LX 2.8 cm 3.0 - 4.0 / 2.7 - 3.8 cm LV Diastolic Volume MOD BP 61.3 cm??? 67 - 155 / 56 - 104 cm??? LV Systolic Volume MOD BP 33.1 cm??? 22 - 58 / 19 - 49 cm??? LV Ejection Fraction MOD BP 45.9 % >= 55 % LV Cardiac Index MOD BP 1303.9 cm???/min???m??? LV Diastolic Volume MOD 4C 45.1 cm??? LV Systolic Volume MOD 4C 22.4 cm??? LV Ejection Fraction MOD 4C 50.3 % LV Cardiac Index MOD 4C 1050.9 cm???/min???m??? LV Diastolic Length 4C 5.5 cm LV Systolic Length 4C 5.2 cm LV Diastolic Volume MOD 2C 76.6 cm??? LV Systolic Volume MOD 2C 46.3 cm??? LV Ejection Fraction MOD 2C 39.5 % LV Cardiac Index MOD 2C 1403.5 cm???/min???m??? LV Diastolic Length 2C 6.0 cm LV Systolic Length 2C 5.6 cm LA Volume 69.5 cm??? 18 - 58 / 22 - 52 cm??? DOPPLER AV Peak Velocity 129.9 cm/s AV Peak Gradient 6.8 mmHg LVOT Peak Velocity 89.4 cm/s LVOT Peak Gradient 3.2 mmHg AV Area Cont Eq pk 2.1 cm??? MV Peak Velocity 123.7 cm/s MV Peak Gradient 6.1 mmHg MV Mean Velocity 55.9 cm/s MV Mean Gradient 1.6 mmHg MV Velocity Time Integral 26.1 cm MR Peak Velocity 463.9 cm/s MR Peak Gradient 86.1 mmHg MV E' Velocity 12.5 cm/s TR Peak Velocity 216.0 cm/s TR Peak Gradient 18.7 mmHg Right Ventricular Systolic Press 73.1 mmHg PV Peak Velocity 114.1 cm/s PV Peak Gradient 5.2 mmHg FINDINGS Left Ventricle Normal LV size and wall thickness. Left ventricular ejection fraction is estimated at 35-40 %. Right Ventricle Normal right ventricular size. RVSP= 81mmhg. Right Atrium Normal right atrial size. Left Atrium Moderately increased left atrial volume. Mildly increased left atrial area. LA Volume index= 34ml/m2 Mitral Valve Structurally normal mitral valve. Moderate MR. Aortic Valve Trileaflet aortic valve. No aortic valve stenosis or regurgitation. Tricuspid Valve Structurally normal tricuspid valve. Moderate to severe TR. Pulmonic Valve Pulmonic valve not well visualized. Moderate PI. Pericardium Normal pericardium. Aorta Normal size aortic root . CONCLUSIONS Reduced LV systolic function ejection fraction 35-40% Moderate MR Moderate to severe TR Posterior pericardial stripe Previewed by: Dr. Yaron Miranda MD (Electronically Signed) Final Date: 01 March 2023 10:14
[2023-03-01] MEDS ORDERED: HEPARIN SODIUM 1,000 UN/ML (10ML VL) ONE (10:23)
[2023-03-01] MEDS ORDERED: VERAPAMIL 2.5 MG/ML 2 ML AMP ONE (10:23)
[2023-03-01] MEDS ORDERED: fentaNYL (PF) 50 MCG/ML 2 ML AMP ONE (10:24)
[2023-03-01 10:30] LABS: African American GFR (CKD) 79 (>60 ml/min/1.73 sqM); Anion Gap 7 mmol/L; Blood Urea Nitrogen 15 mg/dL (7-17); Calcium 8.7 mg/dL (8.4-10.2); Carbon Dioxide 30 mmol/L (22-30); Chloride 103 mmol/L (98-107); Glucose 89 mg/dL (74-99); Magnesium 1.9 mg/dL (1.6-2.3); Non-African American GFR(CKD) 69 (>60 ml/min/1.73 sqM); Potassium 3.8 mmol/L (3.5-5.1); Sodium 140 mmol/L (137-145)
[2023-03-01] MEDS ORDERED: IV FLUID CONTINUATION 750 ML IV ONE ×2 (10:50)
[2023-03-01 10:52] LABS: Basophils % (A) 0 %; Eosinophils # (A) 0.1 k/uL (0-0.7); Eosinophils % (A) 1 %; HCT 48.3 % (34.0-46.0); HGB 15.4 gm/dL (11.4-16.0); Lymphocytes # (A) 1.7 k/uL (1.0-4.8); Lymphocytes % (A) 21 %; MCH 31.8 pg (25.0-35.0); MCV 99.4 fL (80.0-100.0); Mean Platelet Volume 9.9; Monocytes % (A) 12 %; Neutrophils # (A) 5.4 k/uL (1.3-7.7); Neutrophils % (A) 64 %; Platelet Count 176 k/uL (150-450); RBC 4.86 m/uL (3.80-5.40); RDW 12.8 % (11.5-15.5); WBC 8.4 k/uL (3.8-10.6)
[2023-03-01] MEDS ORDERED: fentaNYL (PF) 50 MCG/ML 2 ML AMP IVP ONE (10:54)
[2023-03-01] MEDS ORDERED: MIDAZOLAM 2 MG/2 ML VIAL IVP ONE (10:54)
[2023-03-01] MEDS ORDERED: LIDOCAINE 2% (PF) 20 MG/ML 5 ML VIAL SQ ONE ×3 (10:56→10:57)
[2023-03-01] MEDS ORDERED: VERAPAMIL SYRINGE (5 MG/10 ML) INTRAARTER ONE (10:59)
[2023-03-01] MEDS ORDERED: LIDOCAINE 1% INJ 10MG/ML (20 ML MDV) ONE (11:05)
[2023-03-01] MEDS ORDERED: LIDOCAINE 1% INJ 10MG/ML (20 ML MDV) SQ ONE (11:09)
[2023-03-01] MEDS ORDERED: IOPAMIDOL-370 100ML BTL INJ ONE (11:29)
--- NOTE | 2023-03-01 11:47 | P.CARDCATH ---
Date of Procedure: 03/01/23 Description of Procedure: DIAGNOSTIC CORONARY ANGIOGRAPHY and LEFT HEART CATH REPORT PROCEDURES PERFORMED: Left heart catheterization Selective coronary angiography Moderate conscious sedation 38 mins Right radial access Right common femoral access Right common femoral arteriogram Angioseal Closure INDICATION: NSTEMI Patient is a 62-year-old female who presented to the hospital with worsening shortness of breath. On admission she had evidence of [id number] congestive heart failure with pulmonary congestion and atrial fibrillation with RVR. These are new diagnosis for her. She also had significant elevation of troponin 0.1, 0.2 with normal renal function. Her EKG showed nonspecific ST changes with atrial fibrillation RVR. CONSENT: I have discussed the risks, benefits and alternative therapies for the above-mentioned procedure, sedation/analgesia and necessary blood product administration (if indicated, as they pertain to this patient). The patient has indicated understanding and acceptance of the risks and procedures discussed. Conscious Sedation: Patient's ECG, heart rate, blood pressure, pulse oximetry was monitored throughout the duration of procedure under the direct supervision. [1] mg Versed and [50] mg Fentanyl were used for induction of moderate conscious sedation. Total duration of 38 minutes. PROCEDURE:After the risks, benefits and alternatives of the above mentioned procedure explained in detail with the patient, informed consent was obtained. Patient was taken to the catheterization lab and prepped and draped in usual sterile fashion. Right radial artery was identified using palpation. 1% lidocaine was infiltrated over the right radial artery. Try to relax is obtained in 6-Citizen [place] guide sheath was advanced and flushed. 5 mg of verapamil was administered. The J tipped wire was advanced to the sheet but could not be passed beyond the elbow point due to arterial loop. Decision was made to proceed with right forearm access. Ultrasound was used to identify the right common femoral artery. 1% lidocaine was infiltrated over the right common femoral artery. Using ultrasound arterial access was obtained using micropuncture needle. A 6-Citizen [place] sheath was placed in the right radial artery using modified Seldinger technique. J tipped wire was advanced under fluoroscopic guidance. Over the wire JL4 diagnostic catheter was advanced. Wire was removed, catheter was flushed and manipulated under fluoroscopy to selectively engaged the left coronary ostium. Left coronary angioplasty was performed in different angiographic projections. This catheter was exchanged for a JR4 diagnostic catheter over the wire. The catheter was flushed and manipulated to cross the aortic valve. LV pressures were obtained. Pullback was performed across aortic valve and catheter was manipulated to selectively engage the right coronary ostium under fluoroscopic guidance. Right coronary angiography was performed in different angiographic projections. Catheter was removed over the wire. Femoral sheath was flushed. Angioseal closure device was used to close the arteriotomy site. Appropriate patent hemostasis was achieved. The patient tolerated the procedure well. Magdalena ient was transported back to the post catheterization holding area in stable condition. Angiographic images were reviewed in detail. HEMODYNAMICS: Aortic Pressure: 125/78 mmHg. LV pressure: 126/11 mmHg. LVEDP 15 mmHg. SELECTIVE CORONARY ARTERIOGRAPHY: LEFT MAIN: The left main is a large caliber vessel which bifurcates into the LAD and circumflex. There is no significant stenosis. LEFT ANTERIOR DESCENDING CORONARY ARTERY: LAD is a large caliber vessel which wraps around to the apex. There is no significant stenosis. It gives 3 small diagonal branches which appears angina 15 normal. LEFT CIRCUMFLEX CORONARY ARTERY: It is co-dominant vessel. Left circumflex is a large caliber vessel without significant stenosis. It gives large OM branch appears angiographic and normal. RIGHT CORONARY ARTERY: Co-Dominant vessel. The right coronary artery is a large caliber vessel which gives off a small PDA and PLV branch. It appears angiographically normal. IMPRESSION: Angiographically normal coronary arteries as described above. Normal left sided filling pressures PLAN: 150 cc fluids for 3 hours Routine postcardiac cath care. Femoral access Rate controlled for atrial fibrillation by metoprolol 50 mg BID. Start Eliquis with 1st dose today evening at 4:00 PM. Start cardizem drip at 10 mg We will plan for MEHUL cardioversion tomorrow Performing Physician Stanford Green MD
[2023-03-01] MEDS ORDERED: RX INFO: IV CONTRAST WAS GIVEN 1 EACH MISC MISCELLANE PRN (11:48)
[2023-03-01] MEDS ORDERED: ATORVASTATIN 20 MG TAB PO STA (11:53)
[2023-03-01] MEDS ORDERED: DILTIAZEM 125 MG in SODIUM CHLORIDE 0.9% 100 ML IV SCH (12:00)
[2023-03-01] MEDS ORDERED: SODIUM CHLORIDE 0.9% 1,000 ML IV SCH (12:00)
--- NOTE | 2023-03-01 13:33 | P.PN ---
Subjective Progress Note Date: 03/01/23 Patient reports improvement palpitations, breathing pattern improved. Gen: awake, alert HEENT: normocephalic, atraumatic, good hearing acuity, moist mucous membranes Resp: good air exchange, breathing comfortably with no accessory muscle use, bilateral crackles in the bases CVS: good distal perfusion x 4, irregular rhythm and rate, no appreciable murmurs GI: soft, NTTP, ND : no SPT, no CVAT, tripathi catheter not present MSK: 1+ bilateral pitting edema, no clubbing Neuro: non-focal, moving all extremities Psych: cooperative, euthymic mood Hospital course: 62 year old female no significant past medical history presented for palpitations and exertional dyspnea. In the emergency room, patient was afebrile, 114/71, heart rate 102, 95% on 2 L nasal cannula. CBC is unremarkable. Basic metabolic panel is unremarkable. Liver function test show elevation of AST to 52, ALT to 92. TSH was 2.5. Troponin was 0.2-9. Coags are unremarkable. EKG demonstrates atrial fibrillation with rapid ventricular response. Chest x-ray shows mild cardiomegaly and vascular congestion. Case is discussed with emergency room N decision was made to admit the patient for new onset atrial fibrillation as well as suspected heart failure exacerbation. Assessment: Paroxysmal atrial fibrillation with RVR Acute Congestive heart failure exacerbation, echocardiogram shows EF 35-40% Elevated troponin, representing type II NSTEMI from the above Elevated liver enzymes consistent with congestive hepatopathy Plan: Afebrile, 112/74, 112, 96% room air. CBC is unremarkable. BMP unremarkable. Echo reviewed, showed reduction of EF to 35-40%. C note reviewed, shows clean coronaries. Cardiology note reviewed, plan for MEHUL/CV tomorrow CBC, basic parabolic panel, magnesium ordered for tomorrow Heparin gtt transitioned to apixaban 5mg BID Continue Cardizem drip, monitor on telemetry for toxicity Start Lasix 20 mg IV daily, stop IV fluids Cardiology consult is appreciated Patient is full code Objective - Vital Signs Vital signs: Vital Signs Temp 97.8 F 03/01/23 04:00 Pulse 112 H 03/01/23 12:33 Resp 16 03/01/23 12:33 BP 112/74 03/01/23 12:33 Pulse Ox 96 08/23/23 12:33 FiO2 Intake & Output 02/28/23 03/01/23 03/01/23 18:59 06:59 18:59 Intake Total 123.948 100 Balance 123.948 100 Weight 99.79 kg Intake: IV 100 Intake, IV Titration 123.948 Amount Heparin Sod,Pork in 0.45% 123.948 NaCl 25,000 unit In 0.45 % NaCl 1 250ml.bag @ 10. 02 UNITS/KG/HR 9.999 mls/ hr IV .Q24H [facility] Rx#: [id number] Other: # Voids 1 1 - Labs CBC & Chem 7: 03/01/23 08:24 03/01/23 08:24 Labs: Abnormal Lab Results - Last 24 Hours (Table) 03/01/23 03/01/23 Range/Units 08:24 08:24 Hct 48.3 H (34.0-46.0) % APTT 50.1 H (22.0-30.0) sec
[2023-03-01] MEDS: METOPROLOL TARTRATE 50 MG TAB PO SCH ×2 (13:46→19:59)
[2023-03-01] MEDS: FUROSEMIDE 10 MG/ML 4 ML VIAL IV SCH (13:55)
[2023-03-01] MEDS: APIXABAN 5 MG TAB PO SCH ×2 (16:52→19:59)
[2023-03-02 07:31] LABS: Basophils % (A) 0 %; Eosinophils # (A) 0.2 k/uL (0-0.7); Eosinophils % (A) 1 %; HGB 14.8 gm/dL (11.4-16.0); Lymphocytes # (A) 1.8 k/uL (1.0-4.8); Lymphocytes % (A) 18 %; MCHC 32.2 g/dL (31.0-37.0); MCV 99.1 fL (80.0-100.0); Mean Platelet Volume 9.8; Monocytes # (A) 0.7 k/uL (0-1.0); Monocytes % (A) 7 %; Neutrophils # (A) 7.5 k/uL (1.3-7.7); Neutrophils % (A) 72 %; Platelet Count 161 k/uL (150-450); RBC 4.65 m/uL (3.80-5.40); RDW 13.1 % (11.5-15.5); WBC 10.4 k/uL (3.8-10.6)
[2023-03-02] MEDS ORDERED: PROPOFOL 10 MG/ML 20 ML VIAL IV ONE (07:42)
[2023-03-02] MEDS ORDERED: SODIUM CHLORIDE 0.9% 1,000 ML IV ONE ×2 (07:42)
[2023-03-02] MEDS ORDERED: LIDOCAINE 2% INJ 20 MG/ML (2 ML VIAL) ONE (07:42)
--- NOTE | 2023-03-02 07:43 | XR ---
EXAMINATION TYPE: XR chest 1V DATE OF EXAM: 03/02/2023 HISTORY: Shortness of breath. COMPARISON: 02/27/2023 TECHNIQUE: Single view of the chest is submitted. FINDINGS: Demonstrated are scattered senescent parenchymal change. There is no evidence for focal infiltrate. Continued cardiomegaly with pulmonary venous congestion and mild interstitial edema. Small effusions noted. Hilar and mediastinal structures are within normal limits. Degenerative changes are seen of the dorsal spine. IMPRESSION: 1. Stable interstitial edema.
[2023-03-02] MEDS ORDERED: BENZOCAINE SPRAY 1 CAN TOPICAL ONE ×2 (07:44)
[2023-03-02 07:47] LABS: African American GFR (CKD) >90 (>60 ml/min/1.73 sqM); Anion Gap 7 mmol/L; Blood Urea Nitrogen 17 mg/dL (7-17); Calcium 8.5 mg/dL (8.4-10.2); Carbon Dioxide 28 mmol/L (22-30); Chloride 104 mmol/L (98-107); Glucose 90 mg/dL (74-99); Magnesium 1.8 mg/dL (1.6-2.3); Non-African American GFR(CKD) 84 (>60 ml/min/1.73 sqM); Potassium 3.9 mmol/L (3.5-5.1); Sodium 139 mmol/L (137-145)
[2023-03-02 08:27] VITALS: TEMP 97.5
[2023-03-02] MEDS ORDERED: ASPIRIN 81 MG PO SCH (09:00)
[2023-03-02] MEDS: METOPROLOL TARTRATE 50 MG TAB PO SCH (09:07)
[2023-03-02] MEDS: APIXABAN 5 MG TAB PO SCH (09:07)
[2023-03-02] MEDS: PANTOPRAZOLE 40 MG TABLET PO SCH (09:08)
[2023-03-02 10:05] VITALS: BP 106/72; PULSE 77; RESP 16
--- NOTE | 2023-03-02 11:38 | P.DS ---
Providers Date of admission: 02/28/23 14:10 Expected date of discharge: 03/02/23 Attending physician: Nelly Bowen MD Consults: 02/27/23 18:28 Consult Physician Routine Consulting Provider: Martin Bolivar Consult Reason/Comments: afibNew Do you want consulting provider notified?: Yes Primary care physician: Stated None Hospital Course: Assessment: Paroxysmal atrial fibrillation with RVR Acute Congestive heart failure exacerbation, echocardiogram shows EF 35-40% Elevated troponin, representing type II NSTEMI from the above Elevated liver enzymes consistent with congestive hepatopathy Hospital course: 62 year old female no significant past medical history presented for palpitations and exertional dyspnea. In the emergency room, patient was afebrile, 114/71, heart rate 102, 95% on 2 L nasal cannula. CBC is unremarkable. Basic metabolic panel is unremarkable. Liver function test show elevation of AST to 52, ALT to 92. TSH was 2.5. Troponin was 0.2-9. Coags are unremarkable. EKG demonstrates atrial fibrillation with rapid ventricular response. Chest x-ray shows mild cardiomegaly and vascular congestion. Case is discussed with emergency room and decision was made to admit the patient for new onset atrial fibrillation as well as suspected heart failure exacerbation. Echo did confirm reduced EF to 35-40%. Patient was started on diuretics and her dyspnea improved. She underwent LHC to r/o ACS and this showed clean coronaries. Pt subsequently underwent MEHUL with cardioversion on 03/02 AM and was successfuly converted to NSR. Pt felt back to her baseline and was discharged home with cardiology and PCP f/u. I spent 40 minutes coordinating this discharge on 03/02 Gen: awake, alert HEENT: normocephalic, atraumatic, good hearing acuity, moist mucous membranes Resp: good air exchange, breathing comfortably with no accessory muscle use, bilateral crackles in the bases CVS: good distal perfusion x 4, irregular rhythm and rate, no appreciable murmurs GI: soft, NTTP, ND : no SPT, no CVAT, tripathi catheter not present MSK: 1+ bilateral pitting edema, no clubbing Neuro: non-focal, moving all extremities Psych: cooperative, euthymic mood Patient Condition at Discharge: Good Plan - Discharge Summary Discharge Rx Participant: No New Discharge Prescriptions: New Furosemide [Lasix] 20 mg PO DAILY #30 tab Apixaban [Eliquis] 5 mg PO BID #60 tab Atorvastatin [Lipitor] 20 mg PO HS #30 tab Metoprolol Tartrate [Lopressor] 50 mg PO BID #60 tab lisinopriL [Zestril] 5 mg PO DAILY #30 tab Continue Esomeprazole Magnesium [NexIUM 24Hr] 20 mg PO DAILY Magnesium Oxide [Magnesium] 1,000 mg PO DAILY L.acidoph,Paracasei, B.lactis [Probiotic] 1 cap PO DAILY Discharge Medication List Esomeprazole Magnesium [NexIUM 24Hr] 20 mg PO DAILY 02/27/23 [History] L.acidoph,Paracasei, B.lactis [Probiotic] 1 cap PO DAILY 02/27/23 [History] Magnesium Oxide [Magnesium] 1,000 mg PO DAILY 02/27/23 [History] Apixaban [Eliquis] 5 mg PO BID #60 tab 03/02/23 [Rx] Atorvastatin [Lipitor] 20 mg PO HS #30 tab 03/02/23 [Rx] Furosemide [Lasix] 20 mg PO DAILY #30 tab 03/02/23 [Rx] Metoprolol Tartrate [Lopressor] 50 mg PO BID #60 tab 03/02/23 [Rx] lisinopriL [Zestril] 5 mg PO DAILY #30 tab 03/02/23 [Rx] Follow up Appointment(s)/Referral(s): Stanford Green MD [Medical Doctor] - 03/09/23 2:30 pm None,Stated [Primary Care Provider] - 1-2 days Patient Instructions/Handouts: A-fib (Atrial Fibrillation) (DC), Cardioversion (DC) Discharge/Stand Alone Forms: [facility] PCPs Discharge Disposition: HOME SELF-CARE
[2023-03-02] MEDS ORDERED: ATORVASTATIN 20 MG TAB PO SCH (21:00)
--- NOTE | 2023-03-03 08:47 | P.TEE ---
Date of Procedure: 03/02/23 Description of Procedure(s): Procedure performed: 1. Transesophageal Echocardiogram. 2. Bubble Study. 3. Synchronized Cardioversion. Indications: Atrial fibrillation with rapid ventricular response difficult to control with medical therapy. 55 year old presented with new onset atrial fibrillation with evidence of heart failure and elevated troponin. She was offered rate control strategy but failed to convert spontaneously. Because of her symptoms and heart failure it was decided to offer her rhythm controlled with cardioversion. Consent: I have discussed the risks, benefits and alternative therapies for the above-mentioned procedure. The patient has indicated understanding and acceptance of the risks of the procedure. Signed consent was obtained and was placed in the paper chart. Moderate conscious sedation: Moderate conscious sedation was administered by anesthesia, see separate report. Procedural Steps: Timeout was performed in usual fashion. Patient's heart rate, blood pressure, oxygen saturation and ECG were monitored. After achieving appropriate moderate conscious sedation, MEHUL probe was advanced without difficulty and without any immediate complications to the esophagus. MEHUL study was performed with color flow doppler, pulsed wave doppler and continuous wave doppler. Agitated saline bubbles were injected to assess for any intra-atrial shunt. The probe was then removed. After making sure that there is no evidence of intracardiac thrombus, pacer pads were placed on patients chest and back. Synchronized cardioversion was perfromed using [200]J. [1] attempt. Sinus rhythm was confirmed with a 12 lead EKG. Patient tolerated the procedure well. Patient was transferred to the post procedure area in stable and satisfactory condition. Throughout the procedure patient's heart rate, blood pressure, oxygen saturation and ECG were monitored. Total sedation time [20] mins. Complications: none FINDINGS Left Atrium: Mild increased size. No evidence of mass or thrombus seen Left Atrial Appendage: [No evidence of thrombus or mass seen in AURE. Reduced velocities left atrial appendage. Inter atrial septum: Intact inter-atrial septum with no right to left shunt on bubble study. No evidence of atrial septal defect or patent foramen ovale Left Ventricle: Moderately reduced global LV systolic function with EF in the range of 35% Right Atrium: Mildly increased RV size Right Ventricle: [Normal global RV size and systolic function] Aortic Valve: [Structurally normal Trileaflet, no significant calcification. No significant stenosis or regurgitation on color doppler assessment. ] Mitral Valve: Structurally normal mitral valve with mild lack of coaptation likely due to LV dilatation. Centrally directed mitral regurgitation, likely functional. evere mitral regurgitation by quantitative and qualitative assessment. PISA 0.8 cm at alisaing velocity of 44. There is intermittent pulmonary vein flow reversal. Pulmonic Valve: [Not well visualized.] Tricuspid Valve: Mild tricuspid regurgitation Ascending aorta, Aortic root and Aortic arch: Normal size aortic root and ascending aorta. No significant calcification or atheroma Descending aorta: No significant calcification or atheroma seen CONCLUSION: No evidence of thrombus in AURE or left atrial appendage Moderately reduced global LV systolic function Severe functional mitral regurgitation Successful cardioversion. Family was updated, importance of anticoagulation was discussed, amended outpatient follow-up.
== END 2023-03-02 12:16 | disposition home or self-care (01) | DRG 280 ==
LOC: EC 15:56 → 3SCARD 18:28 → OBSVTOIN 02-28 14:10 → 3SCARD 02-28 14:54
PROVIDERS: ADMIT Family Medicine; ATTEND Family Medicine
PROC: 5A2204Z Restoration of Cardiac Rhythm, Single (ICD-10-PCS; 2023-02-28)
PROC: B24BZZ4 Ultrasonography of Heart with Aorta, Transesophageal (ICD-10-PCS; 2023-02-28)
PROC: B41F1ZZ Fluoroscopy of Right Lower Extremity Arteries using Low Osmolar Contrast (ICD-10-PCS; principal; 2023-03-01 07:30)
PROC: 4A023N7 Measurement of Cardiac Sampling and Pressure, Left Heart, Percutaneous Approach (ICD-10-PCS; principal; 2023-03-01 07:30)
PROC: B2111ZZ Fluoroscopy of Multiple Coronary Arteries using Low Osmolar Contrast (ICD-10-PCS; principal; 2023-03-01 07:30)
DX: I48.0 Paroxysmal atrial fibrillation (principal); I21.A1 Myocardial infarction type 2; I50.23 Acute on chronic systolic (congestive) heart failure; F41.9 Anxiety disorder, unspecified; K76.1 Chronic passive congestion of liver; Z79.899 Other long term (current) drug therapy; Z87.01 Personal history of pneumonia (recurrent); Z87.891 Personal history of nicotine dependence; Z86.16 Personal history of COVID-19; Z82.49 Family history of ischemic heart disease and other diseases of the circulatory system
CPT/HCPCS: 36415; 71045; 80048; 80053; 80061; 83036; 83735; 84100; 84443; 84484; 85025; 85610; 85730; 92960; 93005; 93306; 93312; 93320; 93325; 93458; 94760; 96365; 96366; 96375; 96376; 99291